=== PATIENT | female | born 1965 | race Caucasian/White ===

== ENCOUNTER 2023-08-05 09:58 | Day surgery (SDC) | payer OTHER, SELFPAY ==
[2023-07-29 13:01] LABS: Magnesium 2.2 mg/dL (1.6-2.6)
[2023-08-04 13:08] LABS: Cotinine Screen Blood 1.3 ng/mL (.); Nicotine Blood <1.0 ng/mL (.)
[2023-08-05] VITALS (7 sets, daily range): BP systolic 113–134; BP diastolic 67–98; PULSE 57–73; RESP 14–16; TEMP 36.2–36.8; O2SAT 94–100; BMI 31.6
[2023-08-05] MEDS: Acetaminophen 500 MG Tablet 1000 MG PO (10:21)
[2023-08-05] MEDS: Lactated Ringers 1,000 ML 15 ML IV ×2 (10:21→15:58)
[2023-08-05] MEDS: Gabapentin 600 MG Tablet PO (10:21)
--- NOTE | 2023-08-05 10:21 | PCM.OPRPT ---
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 Primary osteoarthritis, right foot 2. Pain, right foot 3. Pain, right ankle 4. Neuralgia, right lower extremity 5. Benign neoplasm, right fibula 6. Lesion of plantar nerve, right lower extremity Post-Operative Diagnosis: 1. Primary osteoarthritis, right foot 2. Pain, right foot 3. Pain, right ankle 4. Neuralgia, right lower extremity 5. Benign neoplasm, right fibula 6. Lesion of plantar nerve, right lower extremity Surgery/Procedure Performed:: 1. Partial excision of fibula, right lower extremity 2. Edmond of calcaneal bone graft, right foot 3. Neuroplasty, right foot 4. First metatarsophalangeal joint arthrodesis, right foot Description of Surgical Findings:: 1. Severe osteoarthritis to the first metatarsal phalangeal joint with 95% loss of articular cartilage to the first metatarsal head. 2. Anatomical apposition of the first metatarsal phalangeal joint after joint prep. 3. Complete removal of benign bone lesion to the fibula Surgeon: Arnaldo Beavers pulmonary function technician: Laci Jensen Type of Anesthesia: Block,Regional, General and Local Anesthesiologist: Maurice Doyle Special Medications: None Specimen's removed: None Drains: None Estimated Blood Loss (mL): 30 mL Fluids Replaced: Per anesthesia Description of Procedure: Indications For Operation: Ms. Starkey is a 58-year-old female who was admitted to [facility] for elective right lower extremity foot and ankle surgery. Patient has evidence of osteoarthritis as seen on plain film radiographs in office. Patient also has history of benign bone lesion to the distal fibula that is causing her pain with shoe gear as well as neuritis to the right foot. Due to the patient's constant pain she was seen in the office for surgical consultation with all risk and benefits were discussed with her in great detail. Due to nature of the patient's continued pain it has then been deemed necessary to take the patient to the operating room and to perform the above procedures. The nature of the problem, anticipated procedures, postop recovery/convalences and risk/complications include but not limited to infection, wound healing complications, hypertrophic scarring, numbness, tingling, chronic pain, CRPS, over and under correction, recurrence of deformity, DVT and or PE and the need for further surgery have been discussed in great detail with the patient. All questions have been answered to the patient's satisfaction. There are no guarantees given as to the outcome of the procedure. Description of Procedure: Under mild sedation, the patient was brought into the operating room and placed on the operating table in supine position. Once the patient was under general anesthesia with laryngeal mask airway, the right lower extremity was blocked using approximately 10 cc 0.5% Marcaine plain. The patient will receive a popliteal block from anesthesia while in the PACU after procedure, please see anesthesia notes for further detail. Next, a well-padded thigh tourniquet was applied to the right lower extremity. Next, the right lower extremity was prepped and draped in normal aseptic manner. Next, a timeout was then undertaken verifying the correct patient, extremity, visibility of preoperative markings, availability of the equipment. Next, a 6 inch Esmarch was used to exsanguinate the right lower extremity which was held to 60 degrees for 1 minute and the thigh tourniquet was inflated to 275 mmHg. Next using a sterile skin marker incision placement was placed over the first metatarsophalangeal joint, distal lateral fibula and lateral calcaneus. Procedure #1, partial excision of fibula Next, attention was directed to the lateral fibula which was already marked with a sterile skin marker. Using a #15 blade and pickup, a full-thickness incision down to bone was made followed by blunt dissection down to the periosteal layer of the distal fibula. The periosteum was split and allowed exposure of the benign bone lesion of the fibula. There showed no abnormal growth of the bone which had no concerns for any type of bone cancer/tumor. Using a power reciprocating rasp, partial excision of fibula of benign bone lesion/overgrowth was removed without incident. After removal of the benign bone lesion, the bone was smoothed out and showed no evidence of increased protuberance after removal. The area was flushed with copious pradip of warm saline. The periosteum layer was reapproximated with 3-0 Vicryl in running suture technique. The skin was reapproximated and closed with 3-0 Vicryl in horizontal mattress suture technique. Procedure #2, Edmond of calcaneal bone graft Next, attention was directed to the lateral aspect of the calcaneus. Using a #15 blade, a full-thickness incision, approximately 1 cm, down to bone as was made without incident. Continued blunt dissection was carried out with curved hemostats. Using the Arthrex 10 mm osteoagar, calcaneal bone harvest greater than 5 cc was made, then removed from the calcaneus and passed the back table to be used later in the case, for the metatarsal phalangeal joint fusion procedure. Incision was flushed with copious pradip of normal saline. The skin was reapproximated and closed using 3-0 nylon in simple interrupted suture technique. Procedure #3, neuroplasty of saphenous nerve Next, attention was directed to the incision marking over the first metatarsal phalangeal joint. Using a #15 blade, a long full-thickness incision down to subcutaneous tissue was made. Continued blunt dissection was carried down to fascia using a wet Ray-Domonique. Continued blunt dissection was carried down to the level of the saphenous nerve which was identified and released from its adhesions and was allowed to sit free after its release. Procedure #4, first metatarsophalangeal joint arthrodesis Next, using a #15 blade, a full-thickness incision down to bone was made medial to the extensor hallucis longus tendon. The extensor hallucis longus tendon was protected and continued dissection was carried down and around the first metatarsal phalangeal joint. Care was taken to remove the periosteum at the level of the surgical neck of the first metatarsal and head as well as the base of the proximal phalanx. The joint was inspected and showed evidence of severe osteoarthritis as well as 95% loss of the articular surface of the first metatarsal head and base of the proximal phalanx. Using 20 mm cup and cone reamers the head of the first metatarsal and base of the proximal phalanx were prepped. The additional overgrowth of bone was removed with rongeur and discarded. The incision area was flushed with copious also normal saline. A 2-0 mm drill was used to fenestrate the head of the first metatarsal and base of the proximal phalanx. After fenestration was complete, the autograft that was removed from a prior procedure was placed in the first metatarsal phalangeal joint and the first metatarsal phalangeal joint was placed in a anatomical position with the hallux parallel to the second digit with the toenail facing up, with 10 degrees of dorsiflexion with 10 degrees of valgus rotation, and fixated in this position with a 1.4 mm fixation pin. The right medical crosscheck plate was placed per the liner worker's recommendation with the rep in the room. 2 distal 3.5 millimeter locking screws were placed. The crossing screw was predrilled using a 2.5 mm drill and guide. The depth of the drill was checked with fluoroscopy and depth gauge to the ensure that the far cortex was reached. After the depth was checked, a 3.5 x 28 mm cross screw was placed through the plate. Prior to engagement of the far cortex of the 1st metatarsal, the proximal BB tack was removed and further compression was noted across the arthrodesis site of the 1st metatarsal phalangeal joint. Next, 2 additional 3.5 mm locking screws were placed in the proximal plate. All screw lengths were checked clinically as well as with large C-arm fluoroscopy. Attempt was made to put the first metatarsophalangeal joint through range of motion which was unsuccessful due to excellent apposition of the joint during surgery. The incision was flushed with copious pradip of normal saline. The deep layer was closed with 3-0 Vicryl and running locking suture technique. The right thigh tourniquet was deflated and reperfusion to the right lower extremity was noted. The subcutaneous layer and the fascia was reapproximated and closed with 3-0 Vicryl and running suture technique and care was made to allow the saphenous nerve to sit free in the soft tissue. The skin was reapproximated and closed with subcuticular suture technique. The right lower extremity was then cleaned and patted dry. Steri-Strips were applied to the incision over the first metatarsal phalangeal joint. All incisions were dressed with Betadine soaked Adaptic, 4 x 4's, Curlex and a 2 layer Ruth AO splint was applied to the right lower extremity. The patient tolerated the procedure and anesthesia well and apparent satisfactory condition and was transported to the PACU for further monitoring prior to discharge home. Vital signs stable and vascular status intact to all digits bilateral. Post Operative Plan: Weightbearing: Nonweightbearing for 1 week and double layer Ruth AO splint Antibiotics: 2 gm Ancef through the IV DVT Prophylaxis: 81 mg twice daily aspirin Piedra: None Dressing: Betadine soaked Adaptic, dry sterile dressing, 2 layer Ruth AO splint X-Rays: Post-operative films taken on the operating room. Pain Medication: Percocet 5/325, Flexeril Follow-up: 1 week postop in private office with Dr. Beavers Grafts/Implants Used: Autograft, right foot Complications None Admit VTE Documentation VTE Present on Admission: No VTE Mechan Device Prophylaxis: SCD's VTE Pharm Prophylaxis ordered?: Yes
[2023-08-05] MEDS: Magnesium 1 GM over 15 mins IV (10:22)
[2023-08-05 10:43] LABS: Bedside Glucose 143 mg/dL (74-106)
[2023-08-05] MEDS: Cefazolin 2 GM in 0.9% Normal Saline (100mL Bag) 100 ML IV (13:26)
--- NOTE | 2023-08-05 13:30 | RAD_ITS ---
STUDY: X-RAY - RIGHT FOOT CLINICAL: Female, 58 years old. ERAS, RIGHT FIRST MPJ ARTHRODESIS WITH PARTIAL EXCISION FIBULA TECHNIQUE: 2 view(s) of the foot. COMPARISON: None. FINDINGS: 22 seconds of fluoroscopy of the right foot was utilized in the operating room during the first metatarsophalangeal joint arthrodesis and 4 images are somewhat limited for interpretation. . RAD/Foot 2 Views IMPRESSION: Fluoroscopy during first metatarsophalangeal joint arthrodesis. Electronically Signed: Rocky Espinosa MD at 19:32 EST ,
[2023-08-05] MEDS: Bupivacaine Mpf 0.5% 30 ML VIAL (15:16)
== END 2023-08-05 17:29 | disposition home or self-care (01) ==
LOC: SDC 09:58 → AC 10:00
PROVIDERS: PCP Family Medicine; Referring Provider Podiatrist Foot & Ankle Surgery; Visit Provider Podiatrist Foot & Ankle Surgery
PROC: (CPT 28292; principal; 2023-08-05 11:45)
DX: M20.11 Hallux valgus (acquired), right foot (principal); G57.61 Lesion of plantar nerve, right lower limb; D16.21 Benign neoplasm of long bones of right lower limb; M19.071 Primary osteoarthritis, right ankle and foot; G62.9 Polyneuropathy, unspecified; F41.1 Generalized anxiety disorder; F32.A Depression, unspecified; E66.9 Obesity, unspecified; Z68.31 Body mass index [BMI] 31.0-31.9, adult; Z79.82 Long term (current) use of aspirin; Z79.84 Long term (current) use of oral hypoglycemic drugs; Z79.899 Other long term (current) drug therapy
CPT/HCPCS: 28750; 27635; 64708; 20900; 64445; 01480; 73620; 76000; 80323; 82962; 83735; 87081; C1713; J7120; G0480; J2405; J3475